=== PATIENT | male | born 1985 | race Caucasian/White ===

== ENCOUNTER 2022-12-25 14:14 | Emergency (ER) | payer OTHER, SELFPAY ==
[2022-12-25 14:14] VITALS: BP 130/101; PULSE 76; RESP 16; TEMP 36.7; O2SAT 97; BMI 25.2
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
[2022-12-25 16:01] LABS: Absolute Neutrophil Count 5.8 X10^3/uL (2.0-7.7); Basophil# 0.06 X10^3/uL; Basophil% 0.7 % (0-1); Eosinophil# 0.07 X10^3/uL; Eosinophils% 0.8 % (0-5); Hematocrit 44.8 % (40-54); Hemoglobin 15.5 g/dL (13.0-16.5); Lymphocyte % 24.7 % (19-41); Mean Corp Hgb Conc 34.6 g/dL (32-36); Mean Corpuscular Hgb 32.3 pg (27.0-32.0); Mean Corpuscular Volume 93.3 fL (80-94); Mean Platelet Vol. 10.1 fl (6.2-12.0); Monocyte# 0.46 X10^3/uL; Monocyte% 5.4 % (0-10); NRBC Flagged by Analyzer 0 % (0-5); Neutrophil % 68.2 % (47-70); Platelet Count 338 K/mm3 (150-450); RBC Distribution Width CV 11.7 % (11.6-14.6); RBC Distribution Width SD 40.4 fl (35.1-43.9); White Blood Count 8.5 K/mm3 (4.4-11.0)
[2022-12-25 16:15] LABS: Alcohol, Blood (Medical)-Serum < 3.0 mg/dL
[2022-12-25 16:19] LABS: Anion Gap 7 (5-15); BUN 13 mg/dL (7-18); BUN/Creat Ratio 15.9 RATIO (10-20); Calcium,Total 9.5 mg/dL (8.5-10.1); Chloride 104 mmol/L (98-107); Creatinine, Serum 0.82 mg/dL (0.70-1.30); EST Glomerular Filtration Rate 113 mL/min (>60); Est Glom Filt Rate - Afr Amer 137 mL/min (>60); Estimated Creatinine Clearance 109.38 ml/min; Glucose 105 mg/dL (74-106); Potassium 3.7 mmol/L (3.5-5.1); Sodium Level 139 mmol/L (136-145)
[2022-12-25 16:38] LABS: Amphetamine Urine VISTA NEGATIVE (<1000 ng/mL); Barbiturate Urine VISTA NEGATIVE (< 200 ng/mL); Benzodiazepine Urine VISTA NEGATIVE (< 200 ng/mL); Cocaine Urine VISTA NEGATIVE (< 300 ng/mL); Ecstacy Urine VISTA NEGATIVE (< 500 ng/mL); Methadone Urine VISTA NEGATIVE (< 300 ng/mL); PCP Urine VISTA NEGATIVE (< 25 ng/mL); THC Urine VISTA NEGATIVE (< 50 ng/mL); Vista UDS pH Range 5
--- NOTE | 2022-12-25 17:01 | NURSING ---
FAXED CHART TO CRISIS
--- NOTE | 2022-12-25 17:31 | NURSING ---
LEFT CRISIS KNOW ABOUT PATIENT.
[2022-12-25 20:00] VITALS: BP 127/88; PULSE 88; RESP 16; O2SAT 99
[2022-12-25 21:00] VITALS: RESP 16
[2022-12-25 22:00] VITALS: RESP 15
[2022-12-25 23:00] VITALS: RESP 15
[2022-12-26] VITALS: RESP 16
[2022-12-26 01:00] VITALS: RESP 14
[2022-12-26 02:00] VITALS: RESP 16
--- NOTE | 2022-12-26 04:25 | NURSING ---
ACCEPTED TO [facility] N-N [phone]
[2022-12-26 05:57] VITALS: BP 134/60; PULSE 85; RESP 18; O2SAT 97
[2022-12-26 06:43] VITALS: RESP 18
== END 2022-12-26 09:23 ==
PROVIDERS: Emergency Provider Student in an Organized Health Care Education/Training Program; Visit Provider Student in an Organized Health Care Education/Training Program
DX: R45.851 Suicidal ideations (principal); F32.A Depression, unspecified
CPT/HCPCS: 80048; 80307; 82077; 85025; 87811; 99284

== ENCOUNTER 2023-05-13 19:17 | Emergency (ER) | payer OTHER, SELFPAY ==
[2023-05-13 19:18] VITALS: BP 106/79; PULSE 78; RESP 15; TEMP 36.3; O2SAT 98; BMI 23.9
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
[2023-05-13] MEDS: Meclizine HCl 25 MG Tablet PO (19:59)
[2023-05-13] MEDS: proMETHazine 25 MG/ML Syringe 12.5 MG IM (20:01)
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
== END 2023-05-13 21:23 | disposition home or self-care (01) ==
PROVIDERS: Emergency Provider Student in an Organized Health Care Education/Training Program; Visit Provider Student in an Organized Health Care Education/Training Program
DX: S06.0X0A Concussion without loss of consciousness, initial encounter (principal); S02.642A Fracture of ramus of left mandible, initial encounter for closed fracture; Y04.0XXA Assault by unarmed brawl or fight, initial encounter
CPT/HCPCS: 70450; 70486; 96372; 99283

== ENCOUNTER 2025-02-16 19:10 | Emergency (ER) | payer MEDICAID, SELFPAY ==
[2025-02-16 19:12] VITALS: BP 129/83; PULSE 91; RESP 18; TEMP 36.8; O2SAT 100; BMI 23.3
--- NOTE | 2025-02-16 20:49 | EDS_ITS ---
HPI History of Present Illness HPI Narrative: Patient presents with dog bite to his right hand that occurred today. Patient states it was his neighbors dog. Patient states that the dog bit him in the webspace between his thumb and index finger. Patient states his pain feels tight. Patient is right-hand dominant. Patient states his last tetanus was less than 5 years ago. Patient admits to some tingling into his thumb. Patient denies any weakness. Patient denies any other injuries. Chief Complaint: Bite Informant: patient Occured/Mechanism Comment: Dog bite Onset/Context/Timing Onset: Today Context: Sudden Onset Timing: Continuous Quality of Pain: - (Tight) Location: Right hand Worsened by: Nothing Relieved by: Nothing Associated Symptoms Associated Symptoms: Positive for Parasthesia; Negative for Weakness or Loss of Funtion Narrative Tetanus Immunization: <5 years PFSH [facility] Medical History (Updated 02/16/25 @ 21:[address] Clai Wyatt DO) Dog bite Home Medications ?Medication ?Instructions ?Recorded ?Last Taken ?Type meclizine 25 mg tablet 25 mg PO TID PRN dizziness # 60 tabs 05/13/23 Unknown Rx clindamycin HCl 300 mg capsule 300 mg PO Q6H #40 CAPSU LES 02/16/25 Unknown Rx (Cleocin HCl) Allergy/AdvReac Type Severity Reaction Status Date / Time amoxicillin Allergy Anaphylaxis Verified 02/16/25 19:14 Surgical History (Updated 02/16/25 @ 21:[address] Cali Wyatt DO) History of bladder surgery Social History Smoking Status: Never smoker ROS ROS ED Constitutional Constitutional ED: Denies chills or fever(s) Eyes Eyes: Denies blurry vision or change in vision ENT ENT ED: Denies rhinorrhea or sore throat Cardiovascular Cardiovascular: Denies chest pain or palpitations Respiratory/Chest Respiratory/Chest: Denies cough or dyspnea Gastrointestinal Gastrointestinal: Denies nausea or vomiting Genitourinary Genitourinary ED: Denies dysuria or hematuria Musculoskeletal Musculoskeletal: Denies back pain or neck pain Integumentary Denies abscess or rash Neurologic Neurologic: Denies headache(s) or weakness Allergic/Immunologic Allergic/Immunologic ED: Denies mouth swelling or urticaria EXAM Physical Exam Const Vital Signs: 02/16/25 19:12 Temperature 98.3 F Temperature Source Temporal Pulse Rate 91 Respiratory Rate 18 Blood Pressure 129/83 H Blood Pressure Mean 98 Pulse Ox 100 Oxygen Delivery Method Room Air Positive well nourished and well developed General Appearance ED: well developed and NAD HEENT Reports moist mucous membranes Neck full ROM and supple Extremity Extremity Narrative: There is a puncture wound noted on the palmar aspect of the right hand in the webspace between the thumb and index finger. There is no active bleeding noted. There is no bony crepitus or step-off. There is no deformity noted. There is tenderness palpation along right 1st and 2nd metacarpals. Sensation was intact to light touch in the radial, median, and ulnar areas. Strength is 5/5 in the radial, median, and ulnar areas. Capillary refill is less than 2 seconds in all digits. Radial pulses are equal bilaterally. Neuro oriented x3, CN's II-XII intact bilaterally, moves all extremities, no focal motor deficits and no sensory deficits noted Sensorium / Orientation: alert Motor Exam: strength 5/5 throughout Psych mental status grossly normal MDM MDM MDM Narrative Medical decision making narrative: Differential diagnosis includes puncture wound, infection, fracture, and foreign body. X-rays of the right hand will be obtained to assess for fracture and foreign body. Radiography Diagnostic Testing: X-rays of the right hand were obtained. There are 3 views. On my independent interpretation, there is no acute fracture or dislocation noted. There is no foreign body noted. Radiologist also interpreted the x-rays and agrees. Treatment and Re-Evaluation Narrative: Patient was given a dose of clindamycin here. Patient was given a prescription for clindamycin. Patient was instructed to keep the wound clean and dry. Patient was instructed to follow-up with his primary care physician in 5 to 7 days. Patient understood and was agreeable with the plan. All questions were answered. Discharge Plan Triage Chief Complaint: Bite ED Provider: Cali Wyatt Dx/Rx/DC Orders Clinical Impression: Dog bite of right hand, Puncture wound Instructions: ED Dog Bite Prescriptions: New clindamycin HCl [Cleocin HCl] 300 mg capsule 300 mg PO Q6H Qty: 40 0RF No Action meclizine 25 mg tablet 25 mg PO TID PRN (Reason: dizziness) Qty: 60 0RF Primary Care Provider: Care Physician,No Primary Referrals: Cali Leon MD [Med Staff - [facility]] - 5-7 Days Care Physician,No Primary [Primary Care Provider] - Print Language: Guyanese Disposition Disposition: Home, Self Care
--- NOTE | 2025-02-16 21:10 | RAD_ITS ---
PROCEDURE: HAND MIN 3 VIEWS 02/16/2025 REASON FOR EXAM: INJURY/PAIN TECHNIQUE: 3 view(s) of the right hand COMPARISON: None FINDINGS: No acute fracture or dislocation. Joint spaces are maintained. No radiopaque foreign body. No significant soft tissue swelling. No subcutaneous gas. RAD/Hand Min 3 Views IMPRESSION: No acute findings. Reading Location: [facility]
[2025-02-16] MEDS: Clindamycin HCl 150 MG Capsule 300 MG PO (21:29)
[2025-02-16 22:37] VITALS: BP 142/104; PULSE 73; RESP 16; TEMP 36.8; O2SAT 100
== END 2025-02-16 22:38 | disposition home or self-care (01) ==
PROVIDERS: Emergency Provider Emergency Medicine; Visit Provider Emergency Medicine
DX: S61.451A Open bite of right hand, initial encounter (principal); S61.431A Puncture wound without foreign body of right hand, initial encounter; W54.0XXA Bitten by dog, initial encounter
CPT/HCPCS: 73130; 99282